=== PATIENT | male | born 1990 | race Caucasian/White ===

== ENCOUNTER 2016-08-09 02:43 | Emergency (ER) | payer BC, OTHER ==
[2016-08-09] MEDS ORDERED: 0.9 % SODIUM CHLORIDE 1,000 ML BAG IV ONE (03:14)
[2016-08-09] MEDS ORDERED: MAGNESIUM HYDROXIDE/AL HYDROX 30 ML, LIDOCAINE VISC 2% 200 MG PO ONE ×2 (03:14)
[2016-08-09] MEDS ORDERED: ONDANSETRON HCL IV 4 MG/2 ML VIAL IV ONE (03:14)
--- NOTE | 2016-08-09 03:22 | Emergency Department Record ---
History of Present Illness - General Chief Complaint: Abdominal Pain Stated Complaint: ABD PAIN Time Seen by Provider: 08/09/16 03:08 Source: Patient Mode of Arrival: Ambulatory Limitations: No limitations - History of Present Illness Initial Comments: pt had vomiting and diarrhea yesterday. now he has epigastric abd pain that has been constant since this am. Complaint: Abdominal pain Onset/Timin -: Days(s) Location: Epigastric Radiation: Back Quality: Cramping Consistency: Constant Improves With: Rest Worsens With: Movement, Other Associated Symptoms: Diarrhea, Fever, Nausea, Vomiting - Related Data Home Medications Medication Instructions Recorded Confirmed Last Taken No Home Med [NO HOME MEDS] 08/09/16 08/09/16 Unknown Allergies Allergy/AdvReac Type Severity Reaction Status Date / Time prochlorperazine Allergy BEHAVIORAL Verified 09/14/15 03:28 [From Compazine] CHANGES prochlorperazine edisylate Allergy BEHAVIORAL Verified 09/14/15 03:28 [From Compazine] CHANGES prochlorperazine maleate Allergy BEHAVIORAL Verified 09/14/15 03:28 [From Compazine] CHANGES Sulfa (Sulfonamide Allergy SWELLING Verified 09/14/15 03:28 Antibiotics) (GENERAL) Travel Screening - Travel/Exposure Within Last 30 Days Have you traveled within the last 30 days?: No - Travel Symptoms Symptom Screening: None Review of Systems Reviewed: No additional complaints except as noted below Constitutional: Reports: As per HPI. Denies: Chills, Fever, Malaise, Night sweats, Weakness, Weight change Eyes: Reports: As per HPI. Denies: Eye discharge, Eye pain, Photophobia, Vision change ENT: Reports: As per HPI. Denies: Congestion, Dental pain, Ear pain, Epistaxis , Hearing loss, Throat pain Respiratory: Reports: As per HPI. Denies: Cough, Dyspnea, Hemoptysis, Stridor, Wheezes Cardiovascular: Reports: As per HPI. Denies: Arrhythmia, Chest pain, Dyspnea on exertion, Edema, Murmurs, Orthopnea, Palpitations, Paroxysmal nocturnal dyspnea, Rheumatic Fever, Syncope Endocrine: Reports: As per HPI. Denies: Fatigue, Heat or cold intolerance, Polydipsia, Polyuria Gastrointestinal: Reports: As per HPI. Denies: Abdominal pain, Constipation, Diarrhea, Hematemesis, Hematochezia, Melena, Nausea, Vomiting Genitourinary: Reports: As per HPI. Denies: Dysuria, Frequency, Hematuria, Incontinence, Retention, Testicular pain, Testicular mass, Urgency Musculoskeletal: Reports: As per HPI. Denies: Arthralgia, Back pain, Gout, Joint swelling, Myalgia, Neck pain Skin: Reports: As per HPI. Denies: Bruising, Change in color, Change in hair/ nails, Lesions, Pruritus, Rash Neurological: Reports: As per HPI. Denies: Abnormal gait, Confusion, Headache, Numbness, Paresthesias, Seizure, Tingling, Tremors, Vertigo, Weakness Psychiatric: Reports: As per HPI. Denies: Anxiety, Auditory hallucinations, Depression, Homicidal thoughts, Suicidal thoughts, Visual hallucinations Hematological/Lymphatic: Reports: As per HPI. Denies: Anemia, Blood Clots, Easy bleeding, Easy bruising, Swollen glands Past Medical History - SOCIAL HISTORY Smoking Status: Never smoker - RESPIRATORY Hx Respiratory Disorders: No - CARDIOVASCULAR Hx Cardio Disorders: Yes Hx Palpitations: Yes - NEURO Hx Neuro Disorders: Yes Hx Dizziness: Yes - GI Hx GI Disorders: Yes Hx Ulcer: Yes - Hx Genitourinary Disorders: Yes Hx Kidney Stones: Yes - ENDOCRINE Hx Endocrine Disorders: No - MUSCULOSKELETAL Hx Musculoskeletal Disorders: No - PSYCH Hx Psych Problems: Yes Hx Anxiety: Yes Hx Depression: Yes Comment:: panic attacks - HEMATOLOGY/ONCOLOGY Hx Hematology/Oncology Disorders: No Family Medical History Any Significant Family History?: Yes Hx Cancer: Mother, Grandparents Physical Exam - General General Appearance: Alert, Oriented x3, Cooperative, Mild distress - Head Head exam: Normal inspection - Eye Eye exam: Normal appearance, PERRL, EOMI Pupils: Normal accommodation - ENT ENT exam: Normal exam, Mucous membranes moist, Normal external ear exam, Normal orophraynx Ear exam: Normal external inspection. negative: External canal tenderness Nasal Exam: Normal inspection. negative: Discharge, Sinus tenderness Mouth exam: Normal external inspection, Tongue normal Teeth exam: Normal inspection. negative: Dental caries Throat exam: Normal inspection. negative: Tonsillar erythema, Tonsillar exudate - Neck Neck exam: Normal inspection, Full ROM. negative: Tenderness - Respiratory Respiratory exam: Normal lung sounds bilaterally. negative: Respiratory distress - Cardiovascular Cardiovascular Exam: Regular rate, Normal rhythm, Normal heart sounds - GI/Abdominal GI/Abdominal exam: Soft, Normal bowel sounds, Tenderness (epigastric area) - Rectal Rectal exam: Deferred - exam: Deferred - Extremities Extremities exam: Normal inspection, Full ROM, Normal capillary refill. negative: Tenderness - Back Back exam: Reports: Normal inspection, Full ROM. Denies: Muscle spasm, Rash noted, Tenderness - Neurological Neurological exam: Alert, CN II-XII intact, Normal gait, Oriented X3 - Psychiatric Psychiatric exam: Normal affect, Normal mood - Skin Skin exam: Dry, Intact, Normal color, Warm Course Vital Signs 08/09/16 03:01 Temperature 98.4 F Pulse Rate [ 92 H Pulse Ox Probe] Respiratory 20 Rate Blood Pressure 135/72 [Left Arm] Pulse Ox 97 Medical Decision Making - Management Options MDM Management: Additional Work-up Planned (e.g. ADM/Transfer/OP Study) - Data Complexity MDM Data: Labs Ordered and/or Reviewed, X-Ray Ordered and/or Reviewed - Lab Data Result diagrams: 08/09/16 03:00 08/09/16 03:00 - Radiology Data Radiology results: Report reviewed, Image reviewed Disposition Disposition: Discharge Clinical Impression: Abdominal pain Qualifiers: Abdominal location: generalized Qualified Code(s): R10.84 - Generalized abdominal pain Disposition: Home, Self-Care Condition: (1) Good Instructions: Abdominal Pain (ED) Additional Instructions: follow up with family doctor. return sooner if worse Forms: Patient Portal Access, Return to Work/School
[2016-08-09 03:25] LABS: BASO % 0.2 % (0-6); EOS % 0.5 % (0-6); GRAN % 63.5 % (47-80); HEMATOCRIT 46.1 % (42.0-52.0); HEMOGLOBIN 16.2 gm/dl (14.0-18.0); LYMPH % 22.3 % (16-45); MEAN CELL VOLUME 86.8 fl (81-97); MEAN CORPUSCULAR HEMOGLOBIN 30.5 pg (27-33); MEAN CORPUSCULAR HGB CONC 35.1 g/dl (32-36); MEAN PLATELET VOLUME 10.3 fl (7.4-10.4); MONO % 13.5 % (0-9); PLATELET COUNT 155 K/uL (130-400); RED BLOOD COUNT 5.31 M/uL (4.40-5.70); RED CELL DISTRIBUTION WIDTH 12.1 % (11.5-14.5); WHITE BLOOD COUNT W/O DIFF 4.2 K/uL (4.2-12.2)
[2016-08-09 03:34] LABS: ALBUMIN 4.3 gm/dL (3.5-5.0); ALKALINE PHOSPHATASE 78 U/L (38-126); ALT/SGPT 39 U/L (21-72); ANION GAP 10.8 (7-16); AST/SGOT 31 U/L (17-59); BILIRUBIN,TOTAL 0.57 mg/dL (0.2-1.3); BLOOD UREA NITROGEN 11 mg/dL (9-20); CARBON DIOXIDE 25.2 mmol/L (22-30); CREATININE 0.9 mg/dL (0.66-1.25); EST GLOMERULAR FILTRATION RATE > 60 ml/min; GLUCOSE,RANDOM 96 mg/dL (70-110); LIPASE 35 U/L (23-300); TOTAL PROTEIN 7.5 gm/dL (6.3-8.2)
[2016-08-09 04:34] LABS: URINE APPEARANCE CLEAR; URINE BILIRUBIN NEGATIVE (NEGATIVE); URINE BLOOD SMALL (NEGATIVE); URINE COLOR YELLOW; URINE GLUCOSE (UA) NEGATIVE (NEGATIVE); URINE KETONE NEGATIVE (NEGATIVE); URINE LEUKOCYTE ESTERASE NEGATIVE (NEGATIVE); URINE NITRITE NEGATIVE (NEGATIVE); URINE PROTEIN NEGATIVE (NEGATIVE); URINE UROBILINOGEN 0.2 E.U./dL (0.20 - 1.00)
[2016-08-09 04:35] LABS: URINE BACTERIA NONE SEEN; URINE EPITHELIAL CELLS 0 - 2 (FEW); URINE RBC 0 - 2 (NONE SEEN); URINE WBC 0 - 2 (0-2/hpf)
[2016-08-09] MEDS ORDERED: HYDROMORPHONE HCL 1 MG/ML CPJ IVP ONE (04:47)
--- NOTE | 2016-08-12 08:25 | RADIOLOGY REPORT ---
EXAM: ACUTE ABDOMEN SERIES HISTORY: EPIGASTRIC PAIN FOR ONE DAY. NAUSEA AND VOMITING TWO DAYS AGO. TECHNIQUE: AP supine and upright views of the abdomen were obtained as well as an upright PA view of the chest. Comparison: Two view chest radiographic examination dated 03/26/15. FINDINGS: There are several gas distended, nondilated small bowel loops without worrisome air fluid levels. Gas and stool are noted throughout a nondilated colon to the level of the rectum. No mass, organomegaly or suspicious calcification is seen. No free intraperitoneal air. The cardiomediastinal silhouette is normal in size and configuration and the pulmonary vasculature is nondilated. The lungs and pleural spaces remain clear. IMPRESSION: 1. NONOBSTRUCTIVE BOWEL GAS PATTERN. NO FREE INTRAPERITONEAL AIR. THERE ARE A FEW GAS DISTENDED, NONDILATED SMALL BOWEL LOOPS PRESENT LIKELY RELATING TO AEROPHAGIA. ENTERITIS OR ILEUS ARE LESS LIKELY ETIOLOGIES. 2. NEGATIVE SINGLE VIEW CHEST. JOB NUMBER: [id number] [facility]
--- NOTE | 2016-08-12 08:36 | CT SCAN REPORT ---
EXAM: CT OF THE ABDOMEN AND PELVIS WITH CONTRAST HISTORY: EPIGASTRIC PAIN FOR ONE DAY. HISTORY OF LEFT SIDED KIDNEY STONE WITH LITHOTRIPSY. TECHNIQUE: Following oral and intravenous contrast administration, helical CT examination of the abdomen and pelvis was performed including delayed images through the kidneys with 100 ml of Omnipaque 300 utilized. Comparison: Same day acute abdomen series. FINDINGS: The lung bases are clear and there is no pleural or pericardial effusion. The heart as visualized is normal in size. The liver, spleen, pancreas, adrenal glands and kidneys are normal in appearance. The gallbladder is unremarkable. No biliary ductal dilatation is seen. No intraabdominal nor retroperitoneal lymphadenopathy is identified. The vasculature is normal in appearance. No pelvic mass nor adenopathy is seen. No intrinsic urinary bladder abnormality is demonstrated. There is equivocal trace free fluid in the dependent pelvis. No gross bowel dilatation nor bowel wall thickening is seen. The appendix is visualized and normal in appearance. No free intraperitoneal air. No lytic or blastic bone lesion is seen. IMPRESSION: 1. NO CONVINCING CT EVIDENCE OF AN ACUTE INTRAABDOMINAL NOR INTRAPELVIC PROCESS. 2. POSSIBLE TRACE FREE FLUID IN THE DEPENDENT PELVIS. IF THIS IS REAL IT IS NONSPECIFIC, BUT LIKELY PHYSIOLOGIC. [facility]BER: [id number] [facility]
== END 2016-08-09 06:52 | disposition home or self-care (01) ==
LOC: ER 02:43
DX: R10.84 Generalized abdominal pain (principal); R11.2 Nausea with vomiting, unspecified; R19.7 Diarrhea, unspecified
CPT/HCPCS: 74022; 74177; 80048; 80076; 81001; 83690; 85025; 96361; 96374; 96375; 99284; J1170; J2405; J7030